=== PATIENT | female | born 1985 | race African-American/Black ===

== ENCOUNTER 2020-08-09 16:01 | Emergency (ER) | payer OTHER ==
[~2020-08-09] VITALS: Ht 149.9 cm; Wt 68.0 kg
[~2020-08-09 16:01] MED LIST: BENADRYL19 MG PO; BENADRYL25 MG PO; CLINDAMYCIN HC150 MG PO; NAPROSYN500 MG PO; NOHOMEMEDICATIONS; NORCO 5-325 TA1 EACH PO; TRAMADOL 50 MG50 MG PO; ULTRAM 50MG TAB50 MG PO
[2020-08-09] MEDS ORDERED: ABILIFY10 MG PO (16:09)
[2020-08-09] MEDS ORDERED: KEFLEX500 M1 PO (18:19)
[2020-08-09 18:24] VITALS: BP 120/64
--- NOTE | 2020-08-10 06:43 | EKG ---
[address] [address] ELECTROCARDIOGRAM REPORT Name: MARIANA MARIE Room #: [facility]#: [id number] Admission: 08/09/20 Attend Phys: Discharge: 08/09/20 Date of : 83 Report #: [id number] [facility] ED Test Date: 2020-08-09 Test Time: 16:13:50 Pat Name: MARIANA MARIE Department: Room: Gender: F Taker Out: janice : 1985 Requested By: Zachery Bermeo Order Number: [id number] MD: Jesus Garcia Measurements Intervals [place] Rate: 119 P: 69 [place]: 117 QRS: 13 QRSD: 72 T: 30 QT: 308 QTc: 434 Interpretive Statements Sinus tachycardia Consider right atrial enlargement No previous ECG available for comparison Electronically Signed On 08-10-2020 6:43:24 CDT by Jesus Garcia [email or web address] <ELECTRONICALLY SIGNED> By: Jesus Garcia MD, [facility] 08/10/20 [id number] Jesus Garcia MD, FACC /EPI
== END 2020-08-09 18:24 | disposition home or self-care (01) ==
LOC: ER 16:01
DX: S00.452A Superficial foreign body of left ear, initial encounter (principal); S20.211A Contusion of right front wall of thorax, initial encounter; M79.671 Pain in right foot; F17.210 Nicotine dependence, cigarettes, uncomplicated; Z91.041 Radiographic dye allergy status; Z88.1 Allergy status to other antibiotic agents; Z79.899 Other long term (current) drug therapy; Z98.890 Other specified postprocedural states; Z98.51 Tubal ligation status; Z90.710 Acquired absence of both cervix and uterus; Y04.0XXA Assault by unarmed brawl or fight, initial encounter; Y93.89 Activity, other specified; Y92.89 Other specified places as the place of occurrence of the external cause; Y99.9 Unspecified external cause status